=== PATIENT | male | born 1945 | race Caucasian/White ===

== ENCOUNTER 2024-04-26 10:30 | Outpatient (RCR) | payer MEDICARE, BC, OTHER ==
[~2024-04-26 10:30] MED LIST: ASPIRIN E.C. 8181 MG PO; CIALIS10 MG PO; CLARITIN 1010 MG/TAB PO; CRESTOR20 MG PO; FLOMAX 0.40.4 MG/CAP PO; MOBIC15 MG PO; PRILOSEC 20MG20 MG PO; PRINIVIL20 MG PO; SINGULAIR 110 MG/TAB PO; THEO-24 20200 MG/CAP PO
== END 2024-05-02 | disposition home or self-care (01) ==
LOC: WSPT
DX: M25.562 Pain in left knee (principal)

== ENCOUNTER 2024-06-23 14:52 | Emergency (ER) | payer MEDICARE, BC, OTHER ==
[~2024-06-23] VITALS: Ht 172.7 cm; Wt 84.5 kg
[2024-06-23 14:57] VITALS: TEMP 98.6
[2024-06-23] MEDS ORDERED: NS 1,000 ML IV ONE (15:30)
[2024-06-23] MEDS ORDERED: Ondansetron 4 MG/2 ML VIAL IV ONE (15:30)
[2024-06-23 15:38] LABS: BASO % 0.4 % (0.0-2.0); EOS % 0.5 % (0.0-4.0); GRAN # 5.9 K/mm3 (1.4-6.5); GRAN % 77.7 % (42.2-75.2); HEMATOCRIT 47.1 % (42.0-52.0); HEMOGLOBIN 15.9 g/dl (13.5-18.0); LYMPH # 1.1 K/mm3 (1.2-3.4); LYMPH % 14.4 % (20.0-51.0); MEAN CELL VOLUME 95 fl (80.0-100.0); MEAN CORPUSCULAR HEMOGLOBIN 32 pg (27-31); MEAN CORPUSCULAR HGB CONC 34 g/dl (33.0-37.0); MONO # 0.5 K/mm3 (0.1-0.6); MONO % 6.7 % (1.7-9.3); PLATELET COUNT 170 K/mm3 (130-400); RED BLOOD COUNT 4.97 M/mm3 (4.20-5.60); REDCELL DISTRIBUTION WIDTH-CV 13.2 % (11.5-14.5)
[2024-06-23 15:53] LABS: ALBUMIN 4.2 g/dL (3.4-4.8); BILIRUBIN,TOTAL 0.8 mg/dL (0.2-1.2); CALCIUM 9.4 mg/dL (8.4-10.2); CREATININE, serum 1.36 mg/dL (0.72-1.25); POTASSIUM 3.7 mEq/L (3.5-4.5); TOTAL PROTEIN 7.5 g/dl (6.2-8.1)
[2024-06-23] MEDS ORDERED: diphenhydrAMINE 50 MG/ML 1 ML VIAL IV ONE (16:00)
[2024-06-23 16:40] LABS: PH 6.5 (5.0-8.5); URINE APPEARANCE CLEAR (CLEAR/HAZY); URINE BLOOD NEGATIVE (NEGATIVE); URINE COLOR YELLOW (YELLOW); URINE GLUCOSE NEGATIVE (NEGATIVE); URINE KETONE 3+ (NEGATIVE); URINE NITRATE NEGATIVE (NEGATIVE); URINE PROTEIN(semi-quant) 1+ (NEGATIVE)
[2024-06-23 16:47] LABS: COLLECTION METHOD CLEAN CATCH
[2024-06-23] MEDS ORDERED: NS 100 ML IV SCH (16:57)
[2024-06-23] MEDS ORDERED: Iohexol 300 - 100 ML VIAL IV ONE (16:58)
[2024-06-23 18:10] VITALS: BP 145/89; PULSE 60
== END 2024-06-23 18:10 | disposition home or self-care (01) ==
LOC: COL.ER 14:52
PROVIDERS: Physician Assistant
DX: R11.2 Nausea with vomiting, unspecified (principal); R74.01 Elevation of levels of liver transaminase levels
CPT/HCPCS: J1200; J2405; J7030; Q9967

== ENCOUNTER → 2024-07-02 | Outpatient (CLI) | payer MEDICARE, BC, OTHER | LOC: COL.RAD 11:45 | DX: M71.22 Synovial cyst of popliteal space [Baker], left knee (principal) ==